=== PATIENT | female | born 1980 | race Caucasian/White ===

== ENCOUNTER 2016-12-22 17:53 | Emergency (ER) | payer MEDICAID, OTHER ==
[~2016-12-22] VITALS: Ht 152.4 cm; Wt 72.5 kg
[~2016-12-22 17:53] MED LIST: IBUP-232 PO
[2016-12-22 17:54] VITALS: BP 125/65; PULSE 105; RESP 16; TEMP 98.2; O2SAT 98
[2016-12-22] MEDS ORDERED: BENZ100 PO (18:26)
[2016-12-22] MEDS ORDERED: MOME17I EACH NARE (18:26)
[2016-12-22] MEDS ORDERED: IBUP800T23 PO (18:26)
--- NOTE | 2016-12-22 18:27 | PD ---
HPI Chief Complaint: Cold / Flu Symptoms Time Seen by Provider: 18:21 Travel History International Travel<30 days: No Contact w/Intl Traveler<30days: No Traveled to known affect area: No History of Present Illness HPI 36-year-old female presents to the emergency Department with complaint of onset of dry cough yesterday with onset of subjective fever last night and body aches today. Reports minimal nasal congestion. Reports ear pressure. Denies sore throat. Denies chest pain, shortness of breath. Reports chest discomfort with coughing. Denies wheezing. Denies abdominal pain, nausea, vomiting. Has not taken any medications or turning seems to alleviate her symptoms. No one else with similar symptoms. Did not receive the influenza vaccine. Allergies to codeine, contrast media, morphine. No other modifying factors or associated signs and symptoms. PFSH Past Medical History ?: Not : 2 Para: 2 Tubal Ligation: Yes Past Surgical History Appendectomy: Yes Section: Yes Other Surgery: Yes (2013 total hemorrhoidectomy) Social History Alcohol Use: Yes ([facility]) Tobacco Use: No Substance Use: No Allergies-Medications (Allergen,Severity, Reaction): Coded Allergies: Codeine (Verified Allergy, Severe, 12/22/16) Contrast Media (Verified Allergy, Unknown, 12/22/16) Morphine (Verified Allergy, Unknown, 12/22/16) Reported Meds & Prescriptions Reported Meds & Active Scripts Active Tamiflu (Oseltamivir Phosphate) 75 Mg Cap 75 Mg PO BID 5 Days Nasonex Nasal [place] (Mometasone Furoate) 50 Mcg/Act Naspr 2 [place] EACH NARE DAILY PRN Ibuprofen 800 Mg Tab 800 Mg PO Q6HR PRN Tessalon Perles (Benzonatate) 100 Mg Cap 100 Mg PO TID PRN Ibuprofen 600 Mg Tab 600 Mg PO Q8HR PRN Review of Systems Except as stated in HPI: all other systems reviewed are Neg Physical Exam Narrative GENERAL: Well-nourished, well-developed female patient, in no acute distress SKIN: Warm and dry. No rash. HEAD: Atraumatic. Normocephalic. EYES: Pupils equal and round at 3 mm with brisk reaction. No scleral icterus. No injection or drainage. PERRLA. ENT: Mucosa pink and moist. No erythema or exudates. No uvular edema. No uvular , palatal, or tonsillar deviation. Airway patent. EARS: Bilateral pinnae and external canals appear within normal limits. Bilateral tympanic membranes without erythema, dullness or perforation. NECK: Trachea midline. No lymphadenopathy. CARDIOVASCULAR: Regular rate and rhythm. No murmur appreciated. RESPIRATORY: No accessory muscle use. Clear to auscultation. Breath sounds equal bilaterally. GASTROINTESTINAL: Abdomen soft, non-tender, nondistended. Hepatic and splenic margins not palpable. Bowel sounds are active 4 quadrants. MUSCULOSKELETAL: No obvious deformities. No clubbing. No cyanosis. No edema. NEUROLOGICAL: Awake and alert. Oriented 3. No obvious cranial nerve deficits. Motor grossly within normal limits. Normal speech. Moves all extremities. 5/5 strength to all extremities. PSYCHIATRIC: Appropriate mood and affect; insight and judgment normal. Data Data Last Documented VS Vital Signs Date Time Temp Pulse Resp B/P Pulse Ox O2 Delivery O2 Flow Rate FiO2 12/22/16 17:54 98.2 105 16 125/65 98 Orders Influenzae A/B Antigen (12/22/16 18:16) Chest, Single Ap (12/22/16 18:21) Ibuprofen (Motrin) (12/22/16 18:30) MDM Medical Decision Making Medical Screen Exam Complete: Yes Emergency Medical Condition: Yes Medical Record Reviewed: Yes Differential Diagnosis Viral illness, influenza, pneumonia, bronchitis Narrative Course 36-year-old female physical exam and history of present illness consistent with viral illness. Physical exam is unremarkable. The patient is afebrile and nontoxic-appearing. Reports subjective fever at home. Patient reports chest discomfort with coughing only. Otherwise denies chest pain and is of breath. Lung sounds are clear and equal throughout. Ibuprofen ordered. Chest x-ray and influenza ordered. 1900: Influenza positive. Chest x-ray with no acute findings. Discussed symptom treatment with the patient. Verbalizes understanding and agreement. Tamiflu, Tessalon Perles, Nasonex nasal spray, ibuprofen prescribed for home. Patient is medically cleared and stable for discharge. Discussed reasons to return to the emergency department. Instructed patient to follow up with primary care provider. Patient agrees with treatment plan. The patients vital signs are stable and the patient is stable for outpatient follow-up and treatment. Patient discharged home, stable and in no acute distress. Diagnosis Primary Impression: Influenza A Referrals: Primary Care Physician Patient Instructions: General Instructions, Influenza (ED) Additional Instructions: Ibuprofen or Tylenol as directed and as needed to reduce fever/pain; may alternate ibuprofen and Tylenol every 3 hours as needed to minimize fever [id number] decongestants or antihistamines as directed and as needed for symptom management Get plenty of sleep/rest Drink plenty of fluids to prevent dehydration [place] diet to encourage nutrition such as crackers, fruit, applesauce, toast, soup etc. Use an air humidifier/turn off ceiling fans Follow-up with your primary care provider Return immediately to the emergency department with worsening of symptoms Med/Other Pt SpecificInfo: Prescription(s) given Scripts Oseltamivir (Tamiflu)75 Mg Cap75 Mg PO BID 5 Days Ref 0 Prov:Taylor Piedra 12/22/16 Mometasone Nasal [place] (Nasonex Nasal [place])50 Mcg/Act Naspr2 [place] EACH NARE DAILY PRN (NASAL CONGESTION) #1 BOTTLE Ref 0 Prov:Taylor Piedra 12/22/16 Ibuprofen 800 Mg [id number] Mg PO Q6HR PRN (PAIN) #30 TAB Ref 0 Prov:Taylor Piedra 12/22/16 Benzonatate (Tessalon Perles)100 Mg [id number] Mg PO TID PRN (COUGH) #20 CAP Ref 0 Prov:Taylor Piedra 12/22/16 Disposition: 01 DISCHARGE HOME Condition: Stable Taylor Piedra Dec 22, 2016 18:27
[2016-12-22] MEDS ORDERED: IBUPROFEN 800 MG TAB PO ONE (18:30)
--- NOTE | 2016-12-22 19:03 | RADRPT ---
EXAM DATE/TIME: 12/22/2016 18:31 [place] COMPARISON: No previous studies available for comparison. INDICATIONS : Cough and fever for the past two days. MEDICAL HISTORY : None. SURGICAL HISTORY : None. ENCOUNTER: Initial ACUITY: 2 days PAIN SCORE: 2/10 LOCATION: Bilateral chest FINDINGS: A single view of the chest demonstrates the lungs to be symmetrically aerated without evidence of mas s, infiltrate or effusion. The cardiomediastinal contours are unremarkable. Osseous structures are intact. CONCLUSION: Normal examination for a patient of this age. Poli Willson MD on December 22, 2016 at 19:01 Board Certified Radiologist. This report was verified electronically.
[2016-12-22] MEDS ORDERED: OSEL75 PO (19:04)
== END 2016-12-22 20:24 | disposition home or self-care (01) ==
LOC: NEPB 17:53
DX: J09.X2 Influenza due to identified novel influenza A virus with other respiratory manifestations (principal); R05 Cough; R50.9 Fever, unspecified; M79.1 Myalgia; R09.81 Nasal congestion
CPT/HCPCS: 71010; 87804; 99283